=== PATIENT | female | born 1975 | race Caucasian/White ===

== ENCOUNTER 2017-11-09 07:38 | Day surgery (SDC) | payer MEDICAID ==
[~2017-11-09] VITALS: Ht 167.6 cm; Wt 117.2 kg
[2017-11-09] MEDS ORDERED: NAPR220T67 PO (07:51)
[2017-11-09] MEDS ORDERED: FAMO-128 PO (07:52)
[2017-11-09] MEDS ORDERED: LIDOcaine Viscous 15ml cup ONE (08:05)
[2017-11-09] MEDS ORDERED: fentaNYL/PF 50MCG/1 ML 2ML syringe ONE (08:05)
[2017-11-09] MEDS ORDERED: MIDAZolam 5mg/5ml vial ONE ×2 (08:05)
[2017-11-09 08:06] VITALS: BP 139/94
[2017-11-09 08:50] VITALS: BP 125/71
[2017-11-09 09:00] VITALS: BP 111/75
[2017-11-09 09:10] VITALS: BP 111/74
[2017-11-09 09:20] VITALS: BP 107/58
== END 2017-11-09 09:23 | disposition home or self-care (01) ==
LOC: GI LAB 07:38
PROVIDERS: ATTEND Internal Medicine Gastroenterology
DX: K29.50 Unspecified chronic gastritis without bleeding (principal); B96.81 Helicobacter pylori [H. pylori] as the cause of diseases classified elsewhere; K20.8 Other esophagitis; K22.8 Other specified diseases of esophagus; E66.9 Obesity, unspecified; F17.210 Nicotine dependence, cigarettes, uncomplicated; Z88.5 Allergy status to narcotic agent; Z72.89 Other problems related to lifestyle; Z68.41 Body mass index [BMI] 40.0-44.9, adult; Z79.899 Other long term (current) drug therapy
CPT/HCPCS: 43239; 99152; J2250; J3010; J7030; A4620; G0500

== ENCOUNTER 2021-07-06 13:45 | Emergency (ER) | payer MEDICAID, OTHER ==
[~2021-07-06] VITALS: Ht 165.1 cm; Wt 122.8 kg
[~2021-07-06 13:45] MED LIST: FAMO-128 PO; LIDOcaine 1% W/epiNEPHrine 1:100,000 20ml vial ONE; NAPR220T67 PO
[2021-07-06 13:46] VITALS: BP 171/98
[2021-07-06] MEDS ORDERED: HYDR-3965 PO (15:05)
[2021-07-06] MEDS ORDERED: TETanus/Pertussis (Acell)/Diphther VAC/PF (Tdap-Adult) 0.5ml syringe IMVAC ONE (15:05)
[2021-07-06] MEDS ORDERED: CEPH250T PO (15:05)
[2021-07-06] MEDS ORDERED: NAPR-56 PO (15:05)
[2021-07-06] MEDS ORDERED: HYDROcodone/acetaminophen 5mg/325mg tablet PO ONE (15:05)
== END 2021-07-06 15:28 | disposition home or self-care (01) ==
LOC: ER 13:45
DX: S91.211A Laceration without foreign body of right great toe with damage to nail, initial encounter (principal); M79.674 Pain in right toe(s); Z88.5 Allergy status to narcotic agent; Z79.2 Long term (current) use of antibiotics; Z79.899 Other long term (current) drug therapy; Z20.3 Contact with and (suspected) exposure to rabies; X58.XXXA Exposure to other specified factors, initial encounter; Y93.89 Activity, other specified; Y92.89 Other specified places as the place of occurrence of the external cause; Y99.8 Other external cause status
CPT/HCPCS: 11760; 73630; 90471; 90715; 99284; J3490